=== PATIENT | male | born 1945 | race Caucasian/White ===

== ENCOUNTER 2018-08-09 13:39 | Emergency (ER) | payer OTHER ==
[2018-08-09] MEDS ORDERED: Caclcium Chloride 10% INJ SYR IV ONE (13:40)
[2018-08-09] MEDS ORDERED: EPINEPHrine 1 MG/10 ML SYR IV ONE (13:40)
[2018-08-09] MEDS ORDERED: AMIODARONE HCL 150 MG/3 ML INJ IV ONE (13:40)
--- OUTSIDE RECORDS SUMMARY | 2018-08-09 13:40 | XMS REPORT ---
:1945 Author Organization eClinicalWorks Care Team Providers Name Role Phone Arevalo, Naomi Provider Role Unavailable Allergies, Adverse Reactions, Alerts Substance Reaction Event Type Sulfa childhood Drug Allergy Mercury Ammoniated blisters, rash bleeding Drug Allergy Problems Problem Type Condition Code Onset Dates Condition Status Assessment Acute sinusitis, unspecified J01.90 Active Problem Mild intermittent asthma without J45.20 Active complication Assessment Other specified bacterial agents as B96.89 Active the cause of diseases classified elsewhere Problem GERD (gastroesophageal reflux K21.9 Active disease) Problem Edema R60.9 Active Problem Hypothyroidism E03.9 Active Problem History of malignant neoplasm of Z85.46 Active prostate Problem Localized swelling, mass and lump, R22.1 Active neck Problem Chronic back pain M54.9 Active Problem Erectile dysfunction N52.9 Active Assessment Cough R05 Active Assessment Mild intermittent asthma without J45.20 Active complication Assessment Seasonal allergic rhinitis, J30.2 Active unspecified trigger Medications Medication Code Code Instructions Start End Status Dosage System Date Date Testosterone [facility] [place] 2] [address]-02 200 MG/ML Active 1 ml Cypionate Intramuscular Flonase Allergy [facility] [place] 2] 07793558127 50 MCG/ACT Active 2 sprays Relief Nasally Once a to each day nostril Prilosec [facility] [place] 2] [address]-56 20 MG Orally Active 2 capsule Once a day Synthroid [facility] [place] 2] 35169162931 75 MCG Orally Active 1 tablet Once a day on an empty stomach in the morning Augmentin [facility] [place]NOTE 2] 69612609879 875-125 MG Active 1 tablet Orally every 12 hrs Results No Known Results Summary Purpose eClinicalWorks Submission
[2018-08-09] MEDS ORDERED: EPINEPHrine 1 MG/10 ML SYR ONE (14:02)
--- NOTE | 2018-08-09 14:28 | ER ---
Nurse's Notes [facility] Name: Fly Abbasi Age: 73 yrs Sex: Male : 1945 Arrival Date: 08/09/2018 Time: 13:41 Bed 2 Private MD: Diagnosis: Cardiac arrest Presentation: 08/09 13:35 Presenting complaint: EMS states: unresponsive upon scene arrival, HR 40bpm, Sinus aa5 bradycardia on monitor. EMS reports rhythm changed to asystole at approximately 1330 and CPR was initiated. 13:35 Care prior to arrival: CPR manually performed by EMS. Compressions began prior to aa5 arrival. 13:35 Method Of Arrival: EMS: [facility] aa5 13:35 Acuity: ANABELL 1 aa5 13:35 Transition of care: patient was not received from another setting of care. Onset of aa5 symptoms was August 09, 2018. 13:45 Note It was reported by pt's that pt was recently [facility] and aa5 diagnosed with Pericarditis. Historical: - Allergies: 13:40 mercury; aa5 - Home Meds: 13:40 Crestor oral oral [Active]; Unknown thyroid medication [Active]; aa5 - PMHx: 13:40 Asthma; GI Bleed; Gastric Ulcers; Hyperlipidemia; Thyroid problem; Aortic Aneurysm; aa5 Pericarditis; Assessment: 13:35 Reassessment: Bile noted in pt's mouth, Pt suctioned by RT, and assisted ventilations aa5 via BVM started by RT. CPR continued at this time. . 13:35 Reassessment: Pt is unresponsive, CPR being performed at this time. Pt's skin is pale aa5 and cool. No respiratory effort noted. Pupils dilated and fixed. 13:38 Cardiac rhythm is asystole. CPR continued. aa5 13:40 Cardiac rhythm is asystole. CPR continued. aa5 13:42 Cardiac rhythm is asystole. CPR continued. aa5 13:44 Cardiac rhythm is asystole. CPR continued. aa5 13:46 Cardiac rhythm is PEA. CPR continued. aa5 13:48 Cardiac rhythm is asystole. CPR continued. aa5 13:50 Cardiac rhythm is PEA. US completed by Dr. Henriquez with cardiac activity noted. aa5 13:52 Cardiac rhythm is asystole. US completed by Dr. Henriquez with no cardiac activity noted. aa5 13:55 Cardiac rhythm is V fib. Defibrillated with 200 joules. CPR continued. aa5 13:58 Cardiac rhythm is asystole. CPR continued. aa5 14:00 Cardiac rhythm is V-fib. Defibrillated with 200 joules. CPR continued. aa5 14:02 Cardiac rhythm is V-fib. Defibrillated with 200 joules. CPR continued. aa5 14:04 Cardiac rhythm is V-fib. Defibrillated with 200 joules. CPR continued. aa5 14:06 Cardiac rhythm is Asystole. CPR continued. aa5 14:08 Cardiac rhythm is Asystole. US completed by Dr. Henriquez with no cardiac activity noted. aa5 CPR continued. 14:10 Cardiac rhythm is asystole. CPR stopped. US completed by Dr. Henriquez with no cardiac aa5 activity noted. Pronounced by Hilton Henriquez MD. 14:35 Reassessment: Judge Berman at bedside. Pt's at bedside accompanied by Deuce Duran, 5 Spiritual Coordinator at this time. Pt's reports she contacted her daughter and she is coming from [place]. . 14:58 Reassessment: Pt's and daughter at bedside. Pt's has not decided on aa home at this time. . 16:00 Reassessment: [facility] contacted per pt's request.. aa5 Vital Signs: 13:40 aa5 13:48 Resp 20 A; Pulse Ox 99% on ETT ambu; aa5 13:56 Resp 18 A; Pulse Ox 98% on ETT ambu; aa5 13:59 Resp 18 A; Pulse Ox 85% on ETT ambu; aa5 14:04 Resp 20 A; Pulse Ox 81% on ETT ambu; aa5 14:08 Resp 16 A; Pulse Ox 86% on ETT ambu; aa5 13:40 Unable to obtain accurate O2 sat at this time aa5 ED Course: 13:35 Patient arrived in ED. aa5 13:36 Inserted saline lock: 20 gauge in right antecubital area, using aseptic technique. aa5 13:36 Inserted saline lock: 22 gauge in left forearm, using aseptic technique. IV inserted by aa5 Raj Cardona RN. 13:39 Assisted provider with intubation using 8.0 mm ETT via oral route. ET tube secured at aa5 24cm at the lips. Intubated by Hilton Henriquez MD Placement verified by CO2 detector w/ + color change, auscultating bilateral breath sounds. 14:16 [address] [facility] to have personal lines insurance agent contact person to come to er. bd 14:19 Gris Ruby, RN is Primary Nurse. aa5 14:24 Hilton Henriquez MD is Attending Physician. gs 14:25 Triage completed. aa5 14:25 Hilton Henriquez MD is Pronouncing Provider. gs Administered Medications: 13:36 Drug: EPINEPHrine 0.1mg/mL 1:10,000 1 mg Route: IVP; Site: right antecubital; aa5 13:38 Follow up: Response: No change in condition aa5 13:38 Drug: EPINEPHrine 0.1mg/mL 1:10,000 1 mg Route: IVP; Site: right antecubital; aa5 13:40 Follow up: Response: No change in condition aa5 13:41 Drug: EPINEPHrine 0.1mg/mL 1:10,000 1 mg Route: IVP; Site: right antecubital; aa5 13:43 Follow up: Response: No change in condition aa5 13:42 Drug: Sodium Bicarbonate 1 amp Route: IVP; Site: right antecubital; aa5 13:44 Follow up: Response: No change in condition aa5 13:44 Drug: EPINEPHrine 0.1mg/mL 1:10,000 1 mg Route: IVP; Site: right antecubital; aa5 13:46 Follow up: Response: No change in condition aa5 13:45 Drug: Sodium Bicarbonate 1 amp Route: IVP; Site: right antecubital; aa5 13:47 Follow up: Response: No change in condition aa5 13:47 Drug: EPINEPHrine 0.1mg/mL 1:10,000 1 mg Route: IVP; Site: right antecubital; aa5 13:49 Follow up: Response: No change in condition aa5 13:47 Drug: Sodium Bicarbonate 1 amp Route: IVP; Site: right antecubital; aa5 13:49 Follow up: Response: No change in condition aa5 13:50 Drug: EPINEPHrine 0.1mg/mL 1:10,000 1 mg Route: IVP; Site: right antecubital; aa5 13:52 Follow up: Response: No change in condition aa5 13:50 Drug: Sodium Bicarbonate 1 amp Route: IVP; Site: right antecubital; aa5 13:52 Follow up: Response: No change in condition aa5 13:50 Drug: Calcium Chloride 10% 10 ml Route: IVP; Site: right antecubital; aa5 13:52 Follow up: Response: No adverse reaction aa5 13:53 Drug: EPINEPHrine 0.1mg/mL 1:10,000 1 mg Route: IVP; Site: right antecubital; aa5 13:55 Follow up: Response: No change in condition aa5 13:56 Drug: EPINEPHrine 0.1mg/mL 1:10,000 1 mg Route: IVP; Site: right antecubital; aa5 13:58 Follow up: Response: No adverse reaction; No change in condition aa5 13:57 Drug: NS 0.9% 1000 ml Route: IV; Rate: 1000 ml; Site: right antecubital; aa5 14:10 Follow up: IV Status: Order to discontinue infusion aa5 13:59 Drug: EPINEPHrine 0.1mg/mL 1:10,000 1 mg Route: IVP; Site: right antecubital; aa5 14:01 Follow up: Response: No adverse reaction aa5 14:01 Drug: EPINEPHrine 0.1mg/mL 1:10,000 1 mg Route: IVP; Site: right antecubital; aa5 14:03 Follow up: Response: No change in condition aa5 14:04 Drug: amiodarone 300 mg Route: IVP; Site: right antecubital; aa5 14:10 Follow up: Response: No adverse reaction aa5 14:05 Drug: EPINEPHrine 0.1mg/mL 1:10,000 1 mg Route: IVP; Site: right antecubital; aa5 14:07 Follow up: Response: No change in condition aa5 14:08 Drug: EPINEPHrine 0.1mg/mL 1:10,000 1 mg Route: IVP; Site: right antecubital; aa5 14:10 Follow up: Response: No change in condition aa5 Outcome: 16:40 Patient left the ED. aa5 16:40 Patient : Time of 14:10 Pronounced by Hilton Henriquez MD Body to aa home. Signatures: Deuce [email or web address] Ligia Mccann bd Gris Ruby, RN RN aa5 Hilton Henriquez MD MD gs Corrections: (The following items were deleted from the chart) 14:22 13:41 Patient arrived in ED. bd aa5 15:21 13:55 Cardiac rhythm is V fib aa5 aa5 15:27 13:58 Cardiac rhythm is asystole aa5 aa5 15:34 13:38 Cardiac rhythm is asystole aa5 aa5 15:34 13:40 Cardiac rhythm is asystole aa5 aa5 15:34 13:42 Cardiac rhythm is asystole aa5 aa5 15:34 13:44 Cardiac rhythm is asystole aa5 aa5 15:34 13:46 Cardiac rhythm is PEA aa5 aa5 15:34 13:48 Cardiac rhythm is asystole aa5 aa5 15:34 14:10 Cardiac rhythm is asystole. CPR stopped. Pronounced by Hilton Henriquez MD aa5 aa5 15:40 14:04 Pulse 20bpm; Pulse Ox 81% ET / Ambu; aa5 aa5 15:43 13:35 Reassessment: Bile noted in pt's mouth, Pt suctioned by RT, and assisted aa5 ventilations via BVM started by RT . aa5 16:14 13:35 Reassessment: Pt is unresponsive, CPR being performed at this time. Pt's skin is aa5 pale and cool. No respiratory effort noted. . aa5 19:16 16:45 Patient left the ED. jb1 aa5
--- NOTE | 2018-08-22 08:06 | EDPHYS ---
Physician Documentation [facility] Name: Fly Abbasi Age: 73 yrs Sex: Male : 1945 Arrival Date: 08/09/2018 Time: 13:41 Bed 2 Private MD: ED Physician Hilton Henriquez Historical: - Allergies: 08/09 13:40 mercury; aa5 - Home Meds: 13:40 Crestor oral oral [Active]; Unknown thyroid medication [Active]; aa5 - PMHx: 13:40 Asthma; GI Bleed; Gastric Ulcers; Hyperlipidemia; Thyroid problem; Aortic Aneurysm; aa5 Pericarditis; Vital Signs: 13:40 aa5 13:48 Resp 20 A; Pulse Ox 99% on ETT ambu; aa5 13:56 Resp 18 A; Pulse Ox 98% on ETT ambu; aa5 13:59 Resp 18 A; Pulse Ox 85% on ETT ambu; aa5 14:04 Resp 20 A; Pulse Ox 81% on ETT ambu; aa5 14:08 Resp 16 A; Pulse Ox 86% on ETT ambu; aa5 13:40 Unable to obtain accurate O2 sat at this time aa5 MDM: 14:24 Patient medically screened. 08/09 15:09 Order name: glucometer results - FOR PT WITH NO ID aa5 Administered Medications: 13:36 Drug: EPINEPHrine 0.1mg/mL 1:10,000 1 mg Route: IVP; Site: right antecubital; aa5 13:38 Follow up: Response: No change in condition aa5 13:38 Drug: EPINEPHrine 0.1mg/mL 1:10,000 1 mg Route: IVP; Site: right antecubital; aa5 13:40 Follow up: Response: No change in condition aa5 13:41 Drug: EPINEPHrine 0.1mg/mL 1:10,000 1 mg Route: IVP; Site: right antecubital; aa5 13:43 Follow up: Response: No change in condition aa5 13:42 Drug: Sodium Bicarbonate 1 amp Route: IVP; Site: right antecubital; aa5 13:44 Follow up: Response: No change in condition aa5 13:44 Drug: EPINEPHrine 0.1mg/mL 1:10,000 1 mg Route: IVP; Site: right antecubital; aa5 13:46 Follow up: Response: No change in condition aa5 13:45 Drug: Sodium Bicarbonate 1 amp Route: IVP; Site: right antecubital; aa5 13:47 Follow up: Response: No change in condition aa5 13:47 Drug: EPINEPHrine 0.1mg/mL 1:10,000 1 mg Route: IVP; Site: right antecubital; aa5 13:49 Follow up: Response: No change in condition aa5 13:47 Drug: Sodium Bicarbonate 1 amp Route: IVP; Site: right antecubital; aa5 13:49 Follow up: Response: No change in condition aa5 13:50 Drug: EPINEPHrine 0.1mg/mL 1:10,000 1 mg Route: IVP; Site: right antecubital; aa5 13:52 Follow up: Response: No change in condition aa5 13:50 Drug: Sodium Bicarbonate 1 amp Route: IVP; Site: right antecubital; aa5 13:52 Follow up: Response: No change in condition aa5 13:50 Drug: Calcium Chloride 10% 10 ml Route: IVP; Site: right antecubital; aa5 13:52 Follow up: Response: No adverse reaction aa5 13:53 Drug: EPINEPHrine 0.1mg/mL 1:10,000 1 mg Route: IVP; Site: right antecubital; aa5 13:55 Follow up: Response: No change in condition aa5 13:56 Drug: EPINEPHrine 0.1mg/mL 1:10,000 1 mg Route: IVP; Site: right antecubital; aa5 13:58 Follow up: Response: No adverse reaction; No change in condition aa5 13:57 Drug: NS 0.9% 1000 ml Route: IV; Rate: 1000 ml; Site: right antecubital; aa5 14:10 Follow up: IV Status: Order to discontinue infusion aa5 13:59 Drug: EPINEPHrine 0.1mg/mL 1:10,000 1 mg Route: IVP; Site: right antecubital; aa5 14:01 Follow up: Response: No adverse reaction aa5 14:01 Drug: EPINEPHrine 0.1mg/mL 1:10,000 1 mg Route: IVP; Site: right antecubital; aa5 14:03 Follow up: Response: No change in condition aa5 14:04 Drug: amiodarone 300 mg Route: IVP; Site: right antecubital; aa5 14:10 Follow up: Response: No adverse reaction aa5 14:05 Drug: EPINEPHrine 0.1mg/mL 1:10,000 1 mg Route: IVP; Site: right antecubital; aa5 14:07 Follow up: Response: No change in condition aa5 14:08 Drug: EPINEPHrine 0.1mg/mL 1:10,000 1 mg Route: IVP; Site: right antecubital; aa5 14:10 Follow up: Response: No change in condition aa5 Disposition: Patient pronounced on 08/09/18 14:10 by Hilton Henriquez. Impression: Cardiac arrest. - Released to Home. Addendum: 08/22/2018 07:58 Addendum: cc-unresponsive CPR in progress, HPI-limited pt in critical condition, g s unresponsive at home bradycardic per EMS deteriorated to asystole ACLS initiated. ROS - unable to obtain secondary to critical condition. PMH/Soc HX reviewed and agree with nursing notes. PE- VS reviewed, GEN-sever distress,comatose HEENT- no trauma airway open CV-no pulse no heart sounds P- rhonchi with BVM - GI-abdomen soft not distended MS- no deformity no injury noted Skin- Cool Neuro-unable to assess due to criticality [id number] MAC * tube good color change no complications MDM-cardiac arrest, PE, SD, Vfib . Multiple rounds acls no ROSC terminated. Signatures: Dispatcher [employer] EDMS Deuce Tesfaye jb1 Gris Ruby RN RN aa5 Hilton Henriquez MD MD gs Corrections: (The following items were deleted from the chart) 08/09 16:45 14:27 08/09/2018 14:27 Patient pronounced on 08/09/2018 at 14:10 by Hilton Henriquez. jb1 Impression: Cardiac arrest. Released to Home. gs
== END 2018-08-09 16:45 | disposition expired ==
LOC: ER 13:39
PROC: 5A12012 Performance of Cardiac Output, Single, Manual (ICD-10-PCS; principal; 2018-08-09)
PROC: 0BH17EZ Insertion of Endotracheal Airway into Trachea, Via Natural or Artificial Opening (ICD-10-PCS; 2018-08-09)
DX: I46.9 Cardiac arrest, cause unspecified (principal); E07.9 Disorder of thyroid, unspecified; Z88.8 Allergy status to other drugs, medicaments and biological substances
CPT/HCPCS: 31500; 36415; 82962; 92950; 96374; 96375; 99291; J0171 ×2; J0282